=== PATIENT | male | born 1945 | race Caucasian/White ===

== ENCOUNTER → 2016-07-12 | Outpatient (REF) | payer OTHER ==
[2016-07-12 11:39] LABS: INR 2.28
== END ==
LOC: M LABDRAWC 11:04
PROVIDERS: ATTEND Internal Medicine Cardiovascular Disease
DX: Z51.81 Encounter for therapeutic drug level monitoring (principal); Z79.01 Long term (current) use of anticoagulants; I48.91 Unspecified atrial fibrillation

== ENCOUNTER → 2016-07-25 | Outpatient (REF) | payer OTHER ==
[2016-07-25 12:06] LABS: ALBUMIN 3.4 GM/DL (3.2-5.2); ALBUMIN/GLOBULIN RATIO 1.21 (1.00-1.93); ALKALINE PHOSPHATASE 83 U/L (45-117); ALT/SGPT 28 U/L (12-78); ANION GAP 10 MEQ/L (8-16); AST/SGOT 24 U/L (15-37); BILIRUBIN,TOTAL 0.4 MG/DL (0.2-1.0); BLOOD UREA NITROGEN 12 MG/DL (7-18); CARBON DIOXIDE LEVEL 27 MEQ/L (21-32); CHLORIDE LEVEL 106 MEQ/L (98-107); CHOLESTEROL LEVEL 133 MG/DL (<200); CREATININE FOR GFR 1.07 MG/DL (0.70-1.30); FREE T4 0.97 NG/DL (0.76-1.46); GLOMERULAR FILTRATION RATE > 60.0 (>42); GLUCOSE, FASTING 140 MG/DL (83-110); POTASSIUM SERUM 4.8 MEQ/L (3.5-5.1); SODIUM LEVEL 143 MEQ/L (136-145); TOTAL PROTEIN 6.2 GM/DL (6.4-8.2); TRIGLYCERIDES LEVEL 147 MG/DL (<150)
== END ==
LOC: M SFHCCLAY 11:01
PROVIDERS: ATTEND Family Medicine
DX: E11.9 Type 2 diabetes mellitus without complications (principal); E07.9 Disorder of thyroid, unspecified; E78.2 Mixed hyperlipidemia

== ENCOUNTER → 2016-08-15 | Outpatient (REF) | payer OTHER ==
[2016-08-15 11:23] LABS: INR 2.27
== END ==
LOC: M LABDRAWC 10:59
PROVIDERS: ATTEND Internal Medicine Cardiovascular Disease
DX: I48.91 Unspecified atrial fibrillation (principal); Z79.01 Long term (current) use of anticoagulants

== ENCOUNTER → 2016-09-18 | Outpatient (REF) | payer OTHER ==
[2016-09-18 11:59] LABS: INR 3.15
== END ==
LOC: M LABDRAWC 11:35
PROVIDERS: ATTEND Internal Medicine Cardiovascular Disease
DX: I48.91 Unspecified atrial fibrillation (principal); Z79.01 Long term (current) use of anticoagulants

== ENCOUNTER → 2016-10-16 | Outpatient (REF) | payer OTHER ==
[2016-10-16 12:05] LABS: INR 2.37
== END ==
LOC: M LABDRAWC 11:28
PROVIDERS: ATTEND Internal Medicine Cardiovascular Disease
DX: Z51.81 Encounter for therapeutic drug level monitoring (principal); Z79.01 Long term (current) use of anticoagulants; I48.2 Chronic atrial fibrillation

== ENCOUNTER → 2016-11-15 | Outpatient (REF) | payer OTHER ==
[2016-11-15 12:34] LABS: INR 2.79
== END ==
LOC: M LABDRAW1 11:44
PROVIDERS: ATTEND Internal Medicine Cardiovascular Disease
DX: Z51.81 Encounter for therapeutic drug level monitoring (principal); Z79.01 Long term (current) use of anticoagulants; I48.2 Chronic atrial fibrillation

== ENCOUNTER → 2016-12-25 | Outpatient (REF) | payer OTHER ==
[2016-12-25 11:55] LABS: INR 3.42
== END ==
LOC: M LAB REF 11:13
PROVIDERS: ATTEND Internal Medicine Cardiovascular Disease
DX: Z51.81 Encounter for therapeutic drug level monitoring (principal); Z79.01 Long term (current) use of anticoagulants; I48.2 Chronic atrial fibrillation

== ENCOUNTER → 2017-01-04 | Outpatient (REF) | payer OTHER ==
[2017-01-04 12:14] LABS: INR 2.81
== END ==
LOC: M LABDRAWC 11:47
PROVIDERS: ATTEND Internal Medicine Cardiovascular Disease
DX: Z51.81 Encounter for therapeutic drug level monitoring (principal); Z79.01 Long term (current) use of anticoagulants; I48.2 Chronic atrial fibrillation

== ENCOUNTER → 2017-01-16 | Outpatient (REF) | payer OTHER ==
[2017-01-16 13:45] LABS: ALBUMIN 3.5 GM/DL (3.2-5.2); ALBUMIN/GLOBULIN RATIO 1.17 (1.00-1.93); BILIRUBIN,TOTAL 0.4 MG/DL (0.2-1.0); CALCIUM LEVEL 7.8 MG/DL (8.8-10.2); CREATININE FOR GFR 1.33 MG/DL (0.70-1.30); FREE T4 1.1 NG/DL (0.76-1.46); GLOMERULAR FILTRATION RATE 56.1 (>42); POTASSIUM SERUM 4.9 MEQ/L (3.5-5.1); TOTAL PROTEIN 6.5 GM/DL (6.4-8.2)
== END ==
LOC: M SFHCCLAY 09:28
PROVIDERS: ATTEND Family Medicine
DX: E07.9 Disorder of thyroid, unspecified (principal); E11.9 Type 2 diabetes mellitus without complications; E78.2 Mixed hyperlipidemia

== ENCOUNTER → 2017-02-19 | Outpatient (REF) | payer OTHER ==
[2017-02-19 11:47] LABS: INR 3.43
== END ==
LOC: M LABDRAWC 11:19
PROVIDERS: ATTEND Internal Medicine Cardiovascular Disease
DX: Z51.81 Encounter for therapeutic drug level monitoring (principal); Z79.01 Long term (current) use of anticoagulants; I48.2 Chronic atrial fibrillation

== ENCOUNTER → 2017-03-06 | Outpatient (REF) | payer OTHER ==
[2017-03-06 12:01] LABS: INR 1.74
== END ==
LOC: M LABDRAWC 11:46
PROVIDERS: ATTEND Internal Medicine Cardiovascular Disease
DX: Z51.81 Encounter for therapeutic drug level monitoring (principal); Z79.01 Long term (current) use of anticoagulants; I48.2 Chronic atrial fibrillation

== ENCOUNTER → 2017-03-20 | Outpatient (REF) | payer OTHER ==
[2017-03-20 11:38] LABS: INR 2.78
== END ==
LOC: M LAB REF 11:18
PROVIDERS: ATTEND Internal Medicine Cardiovascular Disease
DX: I48.2 Chronic atrial fibrillation (principal); Z79.01 Long term (current) use of anticoagulants

== ENCOUNTER → 2017-04-12 | Outpatient (REF) | payer OTHER ==
[2017-04-12 12:01] LABS: INR 2.27
== END ==
LOC: M LABDRAWC 11:25
PROVIDERS: ATTEND Internal Medicine Cardiovascular Disease
DX: I48.2 Chronic atrial fibrillation (principal); Z79.01 Long term (current) use of anticoagulants

== ENCOUNTER → 2017-06-14 | Outpatient (REF) | payer OTHER ==
[2017-06-14 12:13] LABS: INR 2.24
== END ==
LOC: M LABDRAWC 11:31
PROVIDERS: ATTEND Internal Medicine Cardiovascular Disease
DX: I48.2 Chronic atrial fibrillation (principal); Z79.01 Long term (current) use of anticoagulants

== ENCOUNTER → 2017-07-16 | Outpatient (REF) | payer OTHER ==
[2017-07-16 11:50] LABS: INR 2.56; PROTHROMBIN TIME 28.6 SECONDS (12.4-14.5)
== END ==
LOC: M LABDRAWC 11:30
DX: I48.2 Chronic atrial fibrillation (principal); Z79.01 Long term (current) use of anticoagulants
CPT/HCPCS: 85610

== ENCOUNTER → 2017-07-25 | Outpatient (REF) | payer OTHER ==
[2017-07-25 11:58] LABS: ALBUMIN 3.3 GM/DL (3.2-5.2); ALBUMIN/GLOBULIN RATIO 0.97 (1.00-1.93); ALKALINE PHOSPHATASE 92 U/L (45-117); ALT/SGPT 23 U/L (12-78); ANION GAP 7 MEQ/L (8-16); AST/SGOT 16 U/L (7-37); BILIRUBIN,TOTAL 0.3 MG/DL (0.2-1.0); BLOOD UREA NITROGEN 17 MG/DL (7-18); CALCIUM LEVEL 8.4 MG/DL (8.8-10.2); CARBON DIOXIDE LEVEL 29 MEQ/L (21-32); CHLORIDE LEVEL 106 MEQ/L (98-107); CHOLESTEROL LEVEL 122 MG/DL (<200); CHOLESTEROL RISK RATIO 2.975 (<5); CREATININE FOR GFR 1.15 MG/DL (0.70-1.30); FREE T4 0.95 NG/DL (0.76-1.46); GLOMERULAR FILTRATION RATE > 60.0 (>42); GLUCOSE, FASTING 112 MG/DL (83-110); HDL CHOLESTEROL 41 MG/DL (>40); LDL CHOLESTEROL 35.8 MG/DL (<100); NON-HDL-C 81 MG/DL; POTASSIUM SERUM 4.9 MEQ/L (3.5-5.1); SODIUM LEVEL 142 MEQ/L (136-145); TOTAL PROTEIN 6.7 GM/DL (6.4-8.2); TRIGLYCERIDES LEVEL 226 MG/DL (<150)
[2017-07-25 12:33] LABS: MAU/CREAT RATIO 58.4 MCG/MG (0.0-30.0)
[2017-07-25 12:35] LABS: ESTIMATED AVERAGE GLUCOSE 166 MG/DL (60-110); HEMOGLOBIN A1c 7.4 %
== END ==
LOC: M SFHCCLAY 08:25
DX: E11.9 Type 2 diabetes mellitus without complications (principal); E07.9 Disorder of thyroid, unspecified; E78.2 Mixed hyperlipidemia
CPT/HCPCS: 84443

== ENCOUNTER → 2017-08-20 | Outpatient (REF) | payer OTHER ==
[2017-08-20 13:57] LABS: INR 2.88; PROTHROMBIN TIME 31.4 SECONDS (12.4-14.5)
== END ==
LOC: M LABDRAWC 08:31
DX: I48.2 Chronic atrial fibrillation (principal); Z79.01 Long term (current) use of anticoagulants
CPT/HCPCS: 85610

== ENCOUNTER → 2017-09-18 | Outpatient (REF) | payer OTHER ==
[2017-09-18 12:10] LABS: INR 2.68; PROTHROMBIN TIME 29.6 SECONDS (12.4-14.5)
== END ==
LOC: M LABDRAWC 11:23
DX: Z79.01 Long term (current) use of anticoagulants (principal); I48.2 Chronic atrial fibrillation
CPT/HCPCS: 85610

== ENCOUNTER → 2017-10-19 | Outpatient (REF) | payer OTHER ==
[2017-10-19 11:51] LABS: INR 3.59; PROTHROMBIN TIME 37.6 SECONDS (12.4-14.5)
== END ==
LOC: M LABDRAWC 11:33
DX: Z79.01 Long term (current) use of anticoagulants (principal); I48.2 Chronic atrial fibrillation
CPT/HCPCS: 85610

== ENCOUNTER → 2017-11-05 | Outpatient (REF) | payer OTHER ==
[2017-11-05 12:08] LABS: INR 2.26; PROTHROMBIN TIME 25.8 SECONDS (12.4-14.5)
== END ==
LOC: M LABDRAWC 11:28
DX: Z79.01 Long term (current) use of anticoagulants (principal); I48.2 Chronic atrial fibrillation
CPT/HCPCS: 85610

== ENCOUNTER → 2017-12-07 | Outpatient (REF) | payer OTHER ==
[2017-12-07 12:17] LABS: INR 2.66; PROTHROMBIN TIME 29.5 SECONDS (12.4-14.5)
== END ==
LOC: M LABDRAWC 11:53
DX: I48.2 Chronic atrial fibrillation (principal); Z79.01 Long term (current) use of anticoagulants
CPT/HCPCS: 85610

== ENCOUNTER → 2018-01-10 | Outpatient (REF) | payer OTHER ==
[2018-01-10 16:51] LABS: ESTIMATED AVERAGE GLUCOSE 151 MG/DL (60-110); HEMOGLOBIN A1c 6.9 %; MALB URINE SIEMENS 40.7 MG/L; MAU/CREAT RATIO 16.1 MCG/MG (0.0-30.0)
[2018-01-10 16:57] LABS: ALBUMIN 3.6 GM/DL (3.2-5.2); ALBUMIN/GLOBULIN RATIO 1.16 (1.00-1.93); ALKALINE PHOSPHATASE 80 U/L (45-117); ALT/SGPT 28 U/L (12-78); ANION GAP 5 MEQ/L (8-16); AST/SGOT 29 U/L (7-37); BILIRUBIN,TOTAL 0.4 MG/DL (0.2-1.0); BLOOD UREA NITROGEN 27 MG/DL (7-18); CALCIUM LEVEL 8.4 MG/DL (8.8-10.2); CARBON DIOXIDE LEVEL 28 MEQ/L (21-32); CHLORIDE LEVEL 107 MEQ/L (98-107); CHOLESTEROL LEVEL 124 MG/DL (<200); CHOLESTEROL RISK RATIO 2.755 (<5); CREATININE FOR GFR 1.63 MG/DL (0.70-1.30); FREE T4 0.98 NG/DL (0.76-1.46); GLOMERULAR FILTRATION RATE 44.2 (>42); GLUCOSE, FASTING 137 MG/DL (70-100); HDL CHOLESTEROL 45 MG/DL (>40); NON-HDL-C 79 MG/DL; PSA SCREENING 4.37 NG/ML (< 4.0); SODIUM LEVEL 140 MEQ/L (136-145); TOTAL PROTEIN 6.7 GM/DL (6.4-8.2); TRIGLYCERIDES LEVEL 115 MG/DL (<150)
[2018-01-10 16:58] LABS: POTASSIUM SERUM 5.6 MEQ/L (3.5-5.1)
== END ==
LOC: M SFHCCLAY 13:18
DX: E11.9 Type 2 diabetes mellitus without complications (principal); E07.9 Disorder of thyroid, unspecified; E78.2 Mixed hyperlipidemia; Z12.5 Encounter for screening for malignant neoplasm of prostate
CPT/HCPCS: 84443

== ENCOUNTER → 2018-01-14 | Outpatient (REF) | payer OTHER ==
[2018-01-14 12:00] LABS: PROTHROMBIN TIME 32.7 SECONDS (12.1-14.4)
== END ==
LOC: M LABDRAWC 11:31
DX: Z51.81 Encounter for therapeutic drug level monitoring (principal); Z79.01 Long term (current) use of anticoagulants; I48.2 Chronic atrial fibrillation
CPT/HCPCS: 85610

== ENCOUNTER → 2018-01-28 | Outpatient (REF) | payer OTHER ==
[2018-01-28 11:58] LABS: INR 2.96; PROTHROMBIN TIME 31.5 SECONDS (12.1-14.4)
== END ==
LOC: M LABDRAWC 11:34
DX: Z79.01 Long term (current) use of anticoagulants (principal); I48.2 Chronic atrial fibrillation
CPT/HCPCS: 85610

== ENCOUNTER → 2018-03-04 | Outpatient (REF) | payer OTHER ==
[2018-03-05 12:01] LABS: INR 1.89
== END ==
LOC: M LABDRAWC 11:28
DX: Z79.01 Long term (current) use of anticoagulants (principal); I48.2 Chronic atrial fibrillation
CPT/HCPCS: 85610

== ENCOUNTER → 2018-03-26 | Outpatient (REF) | payer OTHER ==
[2018-03-26 12:17] LABS: INR 2.74; PROTHROMBIN TIME 29.6 SECONDS (12.1-14.4)
== END ==
LOC: M LABDRAWC 11:16
DX: Z79.01 Long term (current) use of anticoagulants (principal); I48.2 Chronic atrial fibrillation
CPT/HCPCS: 85610

== ENCOUNTER → 2018-04-17 | Outpatient (REF) | payer OTHER ==
[2018-04-17 12:07] LABS: INR 2.45; PROTHROMBIN TIME 27.1 SECONDS (12.1-14.4)
== END ==
LOC: M LAB REF 11:33
DX: Z79.01 Long term (current) use of anticoagulants (principal)
CPT/HCPCS: 85610

== ENCOUNTER → 2018-05-16 | Outpatient (REF) | payer OTHER ==
[2018-05-16 13:36] LABS: INR 2.83; PROTHROMBIN TIME 30.4 SECONDS (12.1-14.4)
== END ==
LOC: M LABDRAWC 11:59
DX: Z51.81 Encounter for therapeutic drug level monitoring (principal); Z79.01 Long term (current) use of anticoagulants
CPT/HCPCS: 85610

== ENCOUNTER → 2018-06-20 | Outpatient (REF) | payer OTHER ==
[2018-06-20 12:40] LABS: INR 1.87; PROTHROMBIN TIME 21.9 SECONDS (12.1-14.4)
== END ==
LOC: M LABDRAWC 11:24
DX: Z51.81 Encounter for therapeutic drug level monitoring (principal); Z79.01 Long term (current) use of anticoagulants
CPT/HCPCS: 85610

== ENCOUNTER → 2018-07-04 | Outpatient (REF) | payer OTHER ==
[2018-07-04 12:02] LABS: INR 2.69; PROTHROMBIN TIME 29.2 SECONDS (12.1-14.4)
== END ==
LOC: M LABDRAWC 11:29
PROVIDERS: ATTEND Internal Medicine Cardiovascular Disease
DX: Z79.01 Long term (current) use of anticoagulants (principal)

== ENCOUNTER → 2018-07-17 | Outpatient (REF) | payer OTHER ==
[2018-07-17 12:21] LABS: HEMOGLOBIN A1c 7.4 %
[2018-07-17 12:44] LABS: BLOOD UREA NITROGEN 21 MG/DL (7-18); CALCIUM LEVEL 8.4 MG/DL (8.8-10.2); CARBON DIOXIDE LEVEL 29 MEQ/L (21-32); CHLORIDE LEVEL 104 MEQ/L (98-107); GLOMERULAR FILTRATION RATE > 60.0 (>42); GLUCOSE, FASTING 159 MG/DL (70-100); POTASSIUM SERUM 4.3 MEQ/L (3.5-5.1); SODIUM LEVEL 141 MEQ/L (136-145); TOTAL T3 85.9 NG/DL (60.0-181.0)
== END ==
LOC: M SFHCCLAY 09:26
PROVIDERS: ATTEND Family Medicine
DX: E11.22 Type 2 diabetes mellitus with diabetic chronic kidney disease (principal); E07.9 Disorder of thyroid, unspecified

== ENCOUNTER → 2018-07-31 | Outpatient (REF) | payer OTHER, MEDICARE ==
[2018-07-31 13:07] LABS: INR 2.62; PROTHROMBIN TIME 28.6 SECONDS (12.1-14.4)
== END ==
LOC: M LABDRAWC 12:23
PROVIDERS: ATTEND Internal Medicine Cardiovascular Disease
DX: Z79.01 Long term (current) use of anticoagulants (principal)

== ENCOUNTER → 2018-09-03 | Outpatient (REF) | payer OTHER, MEDICARE ==
[2018-09-03 17:12] LABS: INR 2.87; PROTHROMBIN TIME 30.7 SECONDS (12.1-14.4)
== END ==
LOC: M LABDRAWC 16:21
PROVIDERS: ATTEND Internal Medicine Cardiovascular Disease
DX: Z79.01 Long term (current) use of anticoagulants (principal)

== ENCOUNTER → 2018-10-03 | Outpatient (REF) | payer OTHER, MEDICARE ==
[2018-10-03 11:59] LABS: INR 2.54; PROTHROMBIN TIME 27.9 SECONDS (12.1-14.4)
== END ==
LOC: M LABDRAW1 11:14 → M LAB REF 11:14
PROVIDERS: ATTEND Internal Medicine Cardiovascular Disease
DX: Z79.01 Long term (current) use of anticoagulants (principal)

== ENCOUNTER → 2018-11-01 | Outpatient (REF) | payer OTHER, MEDICARE ==
[2018-11-01 12:44] LABS: INR 2.29; PROTHROMBIN TIME 25.7 SECONDS (12.1-14.4)
== END ==
LOC: M LABDRAWC 11:37
PROVIDERS: ATTEND Internal Medicine Cardiovascular Disease
DX: Z79.01 Long term (current) use of anticoagulants (principal)

== ENCOUNTER → 2018-12-04 | Outpatient (REF) | payer OTHER, MEDICARE ==
[2018-12-04 11:41] LABS: INR 2.51; PROTHROMBIN TIME 27.6 SECONDS (12.1-14.4)
== END ==
LOC: M LAB REF 11:17
PROVIDERS: ATTEND Internal Medicine Cardiovascular Disease
DX: Z79.01 Long term (current) use of anticoagulants (principal); I48.2 Chronic atrial fibrillation

== ENCOUNTER → 2019-01-07 | Outpatient (REF) | payer MEDICARE ==
[2019-01-07 11:52] LABS: BASO % 0.5 % (0.0-1.0); EOS # 0.2 10^3/uL (0.0-0.50); EOS % 3.5 % (0.0-3.0); HEMATOCRIT 36.7 % (42.0-52.0); HEMOGLOBIN 11.7 g/dl (13.5-17.5); LYMPH # 2.2 10^3/uL (1.5-4.5); LYMPH % 34.1 % (24.0-44.0); MEAN CORPUSCULAR HGB CONC 31.9 g/dl (32.0-36.5); MEAN CORPUSCULAR VOLUME 94.1 fl (80.0-96.0); MONO # 0.6 10^3/uL (0.0-0.8); MONO % 9.2 % (0.0-5.0); NEUTROPHILS # 3.4 10^3/uL (1.8-7.7); NEUTROPHILS % 52.5 % (36.0-66.0); PLATELET COUNT, AUTOMATED 173 10^3/uL (150-450); WHITE BLOOD COUNT 6.5 10^3/uL (4.0-10.0)
[2019-01-07 12:15] LABS: ALBUMIN 3.4 GM/DL (3.2-5.2); ALT/SGPT 29 U/L (12-78); BILIRUBIN,TOTAL 0.3 MG/DL (0.2-1.0); BLOOD UREA NITROGEN 21 MG/DL (7-18); CALCIUM LEVEL 7.8 MG/DL (8.8-10.2); CARBON DIOXIDE LEVEL 26 MEQ/L (21-32); CHLORIDE LEVEL 106 MEQ/L (98-107); CHOLESTEROL LEVEL 117 MG/DL (<200); CREATININE FOR GFR 1.23 MG/DL (0.70-1.30); GLOMERULAR FILTRATION RATE > 60.0 (>42); GLUCOSE, FASTING 162 MG/DL (70-100); HDL CHOLESTEROL 52 MG/DL (>40); LDL CHOLESTEROL 48 MG/DL (<100); NON-HDL-C 65 MG/DL; POTASSIUM SERUM 4.5 MEQ/L (3.5-5.1); SODIUM LEVEL 140 MEQ/L (136-145); THYROXINE (T4) 8.3 UG/DL (4.5-12.0); TOTAL PROTEIN 6.5 GM/DL (6.4-8.2); TOTAL T3 84.8 NG/DL (60.0-181.0); TRIGLYCERIDES LEVEL 85 MG/DL (<150)
[2019-01-07 12:41] LABS: MALB URINE SIEMENS 18.5 MG/L; MAU/CREAT RATIO 8.3 MCG/MG (0.0-30.0)
[2019-01-07 13:32] LABS: HEMOGLOBIN A1c 7.5 %
== END ==
LOC: M SFHCCLAY 08:05
PROVIDERS: ATTEND Family Medicine
DX: I10 Essential (primary) hypertension (principal); E78.2 Mixed hyperlipidemia; E11.22 Type 2 diabetes mellitus with diabetic chronic kidney disease; R97.20 Elevated prostate specific antigen [PSA]; E07.9 Disorder of thyroid, unspecified; I48.2 Chronic atrial fibrillation; Z79.01 Long term (current) use of anticoagulants
CPT/HCPCS: 36415; 80053; 80061; 82043; 83036; 84436; 84443; 84480; 85025; 85610; G0103

== ENCOUNTER → 2019-01-07 | Outpatient (REF) | payer MEDICARE ==
[2019-01-07 12:09] LABS: INR 2.51; PROTHROMBIN TIME 26.9 SECONDS (11.8-14.0)
== END ==
LOC: M LABDRAWC 11:15
PROVIDERS: ATTEND Internal Medicine Cardiovascular Disease
DX: I48.2 Chronic atrial fibrillation (principal); Z79.01 Long term (current) use of anticoagulants

== ENCOUNTER → 2019-02-21 | Outpatient (REF) | payer MEDICARE ==
[2019-02-21 11:47] LABS: INR 2.17
== END ==
LOC: M LABDRAWC 11:10
PROVIDERS: ATTEND Internal Medicine Cardiovascular Disease
DX: Z79.01 Long term (current) use of anticoagulants (principal); I48.2 Chronic atrial fibrillation

== ENCOUNTER → 2019-03-21 | Outpatient (REF) | payer MEDICARE ==
[2019-03-21 12:28] LABS: INR 2.15; PROTHROMBIN TIME 23.8 SECONDS (11.8-14.0)
== END ==
LOC: M LABDRAWC 11:21
PROVIDERS: ATTEND Internal Medicine Cardiovascular Disease
DX: Z79.01 Long term (current) use of anticoagulants (principal); I48.2 Chronic atrial fibrillation

== ENCOUNTER → 2019-04-18 | Outpatient (REF) | payer MEDICARE ==
[2019-04-18 12:09] LABS: INR 1.99; PROTHROMBIN TIME 22.4 SECONDS (11.8-14.0)
== END ==
LOC: M LABDRAWC 11:23
PROVIDERS: ATTEND Internal Medicine Cardiovascular Disease
DX: Z79.01 Long term (current) use of anticoagulants (principal); I48.20 Chronic atrial fibrillation, unspecified

== ENCOUNTER → 2019-04-28 | Outpatient (REF) | payer MEDICARE ==
[2019-04-28 11:43] LABS: INR 2.17
== END ==
LOC: M LABDRAWC 08:31
PROVIDERS: ATTEND Internal Medicine Cardiovascular Disease
DX: Z79.01 Long term (current) use of anticoagulants (principal)

== ENCOUNTER → 2019-05-27 | Outpatient (REF) | payer MEDICARE ==
[2019-05-27 12:11] LABS: INR 2.21; PROTHROMBIN TIME 24.3 SECONDS (11.8-14.0)
== END ==
LOC: M LABDRAWC 11:20 → M LAB REF 11:20
PROVIDERS: ATTEND Internal Medicine Cardiovascular Disease
DX: Z79.01 Long term (current) use of anticoagulants (principal); I48.20 Chronic atrial fibrillation, unspecified

== ENCOUNTER → 2019-06-26 | Outpatient (REF) | payer MEDICARE ==
[2019-06-26 11:47] LABS: INR 2.99
== END ==
LOC: M LABDRAWC 11:11
PROVIDERS: ATTEND Internal Medicine Cardiovascular Disease
DX: Z79.01 Long term (current) use of anticoagulants (principal); I48.20 Chronic atrial fibrillation, unspecified

== ENCOUNTER → 2019-07-22 | Outpatient (REF) | payer MEDICARE ==
[2019-07-22 12:32] LABS: INR 2.91; PROTHROMBIN TIME 30.3 SECONDS (11.8-14.0)
== END ==
LOC: M LABDRAWC 11:53
PROVIDERS: ATTEND Internal Medicine Cardiovascular Disease
DX: I48.20 Chronic atrial fibrillation, unspecified (principal); Z79.01 Long term (current) use of anticoagulants

== ENCOUNTER → 2019-07-22 | Outpatient (REF) | payer MEDICARE ==
[2019-07-22 17:07] LABS: ALBUMIN 3.8 GM/DL (3.2-5.2); BILIRUBIN,TOTAL 0.4 MG/DL (0.2-1.0); CREATININE FOR GFR 1.29 MG/DL (0.70-1.30); GLOMERULAR FILTRATION RATE 57.8 (>42); POTASSIUM SERUM 4.3 MEQ/L (3.5-5.1); PROSTATIC SPECIFIC AG MONITOR 5.34 NG/ML (< 4.00); THYROID STIMULATING HORMONE 4.66 uIU/ML (0.358-3.740); THYROXINE (T4) 8.9 UG/DL (4.5-12.0); TOTAL PROTEIN 6.9 GM/DL (6.4-8.2)
[2019-07-22 17:11] LABS: HEMOGLOBIN A1c 8.1 %
== END ==
LOC: M SFHCCLAY 10:23
PROVIDERS: ATTEND Family Medicine
DX: E11.22 Type 2 diabetes mellitus with diabetic chronic kidney disease (principal); E07.9 Disorder of thyroid, unspecified; R97.20 Elevated prostate specific antigen [PSA]; I48.20 Chronic atrial fibrillation, unspecified; Z79.01 Long term (current) use of anticoagulants

== ENCOUNTER → 2019-08-21 | Outpatient (REF) | payer MEDICARE ==
[2019-08-21 12:12] LABS: INR 3.91; PROTHROMBIN TIME 38.4 SECONDS (11.8-14.0)
== END ==
LOC: M LABDRAWC 11:14
PROVIDERS: ATTEND Internal Medicine Cardiovascular Disease
DX: Z79.01 Long term (current) use of anticoagulants (principal); I48.20 Chronic atrial fibrillation, unspecified

== ENCOUNTER → 2019-09-02 | Outpatient (REF) | payer MEDICARE ==
[2019-09-02 13:01] LABS: INR 2.49; PROTHROMBIN TIME 26.8 SECONDS (11.8-14.0)
== END ==
LOC: M LABDRAWC 11:24
PROVIDERS: ATTEND Internal Medicine Cardiovascular Disease
DX: I48.20 Chronic atrial fibrillation, unspecified (principal); Z79.01 Long term (current) use of anticoagulants

== ENCOUNTER → 2019-09-17 | Outpatient (REF) | payer MEDICARE ==
[2019-09-17 11:58] LABS: INR 2.35; PROTHROMBIN TIME 25.6 SECONDS (11.8-14.0)
== END ==
LOC: M LABDRAWC 11:17
PROVIDERS: ATTEND Internal Medicine Cardiovascular Disease
DX: Z79.01 Long term (current) use of anticoagulants (principal); I48.20 Chronic atrial fibrillation, unspecified

== ENCOUNTER → 2019-10-08 | Outpatient (REF) | payer MEDICARE ==
[2019-10-08 11:59] LABS: INR 2.86; PROTHROMBIN TIME 29.9 SECONDS (11.8-14.0)
== END ==
LOC: M LABDRAWC 11:13
PROVIDERS: ATTEND Internal Medicine Cardiovascular Disease
DX: I48.20 Chronic atrial fibrillation, unspecified (principal); Z79.01 Long term (current) use of anticoagulants

== ENCOUNTER → 2019-11-05 | Outpatient (REF) | payer MEDICARE ==
[2019-11-05 12:06] LABS: INR 3.43; PROTHROMBIN TIME 34.6 SECONDS (11.8-14.0)
== END ==
LOC: M LABDRAWC 11:18
PROVIDERS: ATTEND Internal Medicine Cardiovascular Disease
DX: Z79.01 Long term (current) use of anticoagulants (principal); I48.20 Chronic atrial fibrillation, unspecified

== ENCOUNTER → 2019-11-11 | Outpatient (REF) | payer MEDICARE | LOC: M LAB REF 10:22 | PROVIDERS: ATTEND Dermatology | DX: C44.320 Squamous cell carcinoma of skin of unspecified parts of face (principal) ==

== ENCOUNTER → 2019-11-19 | Outpatient (REF) | payer MEDICARE ==
[2019-11-19 11:58] LABS: INR 2.49; PROTHROMBIN TIME 26.8 SECONDS (11.8-14.0)
== END ==
LOC: M LABDRAWC 11:19
PROVIDERS: ATTEND Internal Medicine Cardiovascular Disease
DX: I48.20 Chronic atrial fibrillation, unspecified (principal); Z79.01 Long term (current) use of anticoagulants

== ENCOUNTER → 2019-12-10 | Outpatient (REF) | payer MEDICARE | LOC: M LAB REF 10:33 | PROVIDERS: ATTEND Dermatology | DX: C44.320 Squamous cell carcinoma of skin of unspecified parts of face (principal); L90.5 Scar conditions and fibrosis of skin ==

== ENCOUNTER → 2019-12-11 | Outpatient (REF) | payer MEDICARE ==
[2019-12-11 12:58] LABS: INR 3.2; PROTHROMBIN TIME 32.7 SECONDS (11.8-14.0)
== END ==
LOC: M LABDRAWC 11:21
PROVIDERS: ATTEND Internal Medicine Cardiovascular Disease
DX: Z79.01 Long term (current) use of anticoagulants (principal); I48.20 Chronic atrial fibrillation, unspecified

== ENCOUNTER → 2019-12-25 | Outpatient (REF) | payer MEDICARE ==
[2019-12-25 12:11] LABS: INR 2.78; PROTHROMBIN TIME 29.2 SECONDS (11.8-14.0)
== END ==
LOC: M LABDRAWC 11:14
PROVIDERS: ATTEND Internal Medicine Cardiovascular Disease
DX: Z79.01 Long term (current) use of anticoagulants (principal); I48.20 Chronic atrial fibrillation, unspecified

== ENCOUNTER → 2020-01-21 | Outpatient (REF) | payer MEDICARE ==
[2020-01-21 12:01] LABS: INR 2.79; PROTHROMBIN TIME 29.3 SECONDS (11.8-14.0)
== END ==
LOC: M LABDRAWC 11:43
PROVIDERS: ATTEND Internal Medicine Cardiovascular Disease
DX: I48.20 Chronic atrial fibrillation, unspecified (principal); Z79.01 Long term (current) use of anticoagulants

== ENCOUNTER → 2020-01-21 | Outpatient (REF) | payer MEDICARE ==
[2020-01-21 13:39] LABS: ALBUMIN 3.3 GM/DL (3.2-5.2); BILIRUBIN,TOTAL 0.3 MG/DL (0.2-1.0); CALCIUM LEVEL 8.4 MG/DL (8.8-10.2); CHOLESTEROL RISK RATIO 3.275 (<5); CREATININE FOR GFR 1.3 MG/DL (0.70-1.30); GLOMERULAR FILTRATION RATE 57.1 (>42); POTASSIUM SERUM 4.5 MEQ/L (3.5-5.1); PROSTATIC SPECIFIC AG MONITOR 4.8 NG/ML (< 4.00); THYROID STIMULATING HORMONE 3.79 uIU/ML (0.358-3.740); TOTAL PROTEIN 6.5 GM/DL (6.4-8.2)
[2020-01-21 15:22] LABS: HEMOGLOBIN A1c 6.3 %
== END ==
LOC: M SFHCCLAY 07:48
PROVIDERS: ATTEND Family Medicine
DX: E11.22 Type 2 diabetes mellitus with diabetic chronic kidney disease (principal); E07.9 Disorder of thyroid, unspecified; R97.20 Elevated prostate specific antigen [PSA]; I48.20 Chronic atrial fibrillation, unspecified; Z79.01 Long term (current) use of anticoagulants

== ENCOUNTER → 2020-03-02 | Outpatient (REF) | payer MEDICARE ==
[2020-03-02 13:07] LABS: INR 1.28; PROTHROMBIN TIME 16.3 SECONDS (11.8-14.0)
== END ==
LOC: M LABDRAWC 11:08
PROVIDERS: ATTEND Internal Medicine Cardiovascular Disease
DX: Z79.01 Long term (current) use of anticoagulants (principal); I48.20 Chronic atrial fibrillation, unspecified

== ENCOUNTER → 2020-03-18 | Outpatient (REF) | payer MEDICARE ==
[2020-03-18 13:39] LABS: INR 1.89; PROTHROMBIN TIME 22.1 SECONDS (11.8-14.0)
== END ==
LOC: M LABDRAWC 11:54
PROVIDERS: ATTEND Internal Medicine Cardiovascular Disease
DX: I48.20 Chronic atrial fibrillation, unspecified (principal); Z79.01 Long term (current) use of anticoagulants

== ENCOUNTER → 2020-04-06 | Outpatient (REF) | payer MEDICARE ==
[2020-04-06 12:37] LABS: PROTHROMBIN TIME 23.1 SECONDS (12.5-14.3)
== END ==
LOC: M LABDRAWC 11:08
PROVIDERS: ATTEND Internal Medicine Cardiovascular Disease
DX: Z51.81 Encounter for therapeutic drug level monitoring (principal); Z79.01 Long term (current) use of anticoagulants; I48.20 Chronic atrial fibrillation, unspecified

== ENCOUNTER → 2020-04-27 | Outpatient (REF) | payer MEDICARE ==
[2020-04-27 12:47] LABS: INR 2.67
== END ==
LOC: M LABDRAWC 11:19
PROVIDERS: ATTEND Internal Medicine Cardiovascular Disease
DX: Z79.01 Long term (current) use of anticoagulants (principal); I48.20 Chronic atrial fibrillation, unspecified

== ENCOUNTER → 2020-08-09 | Outpatient (REF) | payer MEDICARE ==
[2020-08-09 12:14] LABS: ALBUMIN 3.7 GM/DL (3.2-5.2); BILIRUBIN,TOTAL 0.4 MG/DL (0.2-1.0); CREATININE FOR GFR 1.55 MG/DL (0.70-1.30); GLOMERULAR FILTRATION RATE 46.6 (>42); POTASSIUM SERUM 4.2 MEQ/L (3.5-5.1); PROSTATIC SPECIFIC AG MONITOR 4.23 NG/ML (< 4.00); THYROID STIMULATING HORMONE 4.09 uIU/ML (0.358-3.740); TOTAL PROTEIN 6.7 GM/DL (6.4-8.2)
[2020-08-09 15:58] LABS: HEMOGLOBIN A1c 6.4 %
== END ==
LOC: M SFHCCLAY 08:27
PROVIDERS: ATTEND Family Medicine
DX: E11.22 Type 2 diabetes mellitus with diabetic chronic kidney disease (principal); E07.9 Disorder of thyroid, unspecified; R97.20 Elevated prostate specific antigen [PSA]

== ENCOUNTER → 2021-02-11 | Outpatient (REF) | payer MEDICARE ==
[2021-02-11 16:16] LABS: HEMOGLOBIN A1c 6.4 %
[2021-02-11 16:44] LABS: ALBUMIN 3.4 GM/DL (3.2-5.2); BILIRUBIN,TOTAL 0.4 MG/DL (0.2-1.0); CHOLESTEROL RISK RATIO 2.93 (<5); CREATININE FOR GFR 1.3 MG/DL (0.70-1.30); POTASSIUM SERUM 4.5 MEQ/L (3.5-5.1); PROSTATIC SPECIFIC AG MONITOR 4.61 NG/ML (< 4.00); THYROID STIMULATING HORMONE 3.88 uIU/ML (0.358-3.740); TOTAL PROTEIN 6.2 GM/DL (6.4-8.2)
== END ==
LOC: M SFHCCLAY 07:34
PROVIDERS: ATTEND Family Medicine
DX: E11.22 Type 2 diabetes mellitus with diabetic chronic kidney disease (principal); E07.9 Disorder of thyroid, unspecified; R97.20 Elevated prostate specific antigen [PSA]
CPT/HCPCS: 80053; 80061; 83036; 84153; 84443; G0463

== ENCOUNTER → 2021-08-15 | Outpatient (REF) | payer MEDICARE ==
[2021-08-15 13:16] LABS: ALBUMIN 3.4 GM/DL (3.2-5.2); BILIRUBIN,TOTAL 0.3 MG/DL (0.2-1.0); CALCIUM LEVEL 8.5 MG/DL (8.8-10.2); CREATININE FOR GFR 1.28 MG/DL (0.70-1.30); POTASSIUM SERUM 4.4 MEQ/L (3.5-5.1); THYROID STIMULATING HORMONE 4.27 uIU/ML (0.358-3.740); TOTAL PROTEIN 6.3 GM/DL (6.4-8.2)
[2021-08-15 13:17] LABS: HEMOGLOBIN A1c 6.7 %
== END ==
LOC: M SFHCCLAY 08:12
PROVIDERS: ATTEND Family Medicine
DX: E11.22 Type 2 diabetes mellitus with diabetic chronic kidney disease (principal); E07.9 Disorder of thyroid, unspecified; N18.9 Chronic kidney disease, unspecified

== ENCOUNTER → 2022-02-08 | Outpatient (REF) | payer MEDICARE ==
[2022-02-08 11:28] LABS: BASO % 0.5 % (0.0-1.0); EOS # 0.3 10^3/uL (0.0-0.5); EOS % 4.5 % (0.0-3.0); HEMATOCRIT 36.3 % (42.0-52.0); HEMOGLOBIN 11.6 g/dl (13.5-17.5); LYMPH # 1.6 10^3/uL (1.5-5.0); LYMPH % 28.5 % (24.0-44.0); MEAN CORPUSCULAR HEMOGLOBIN 29.9 pg (27.0-33.0); MEAN CORPUSCULAR VOLUME 93.6 fl (80.0-96.0); MONO # 0.5 10^3/uL (0.0-0.8); MONO % 9.3 % (2.0-8.0); NEUTROPHILS # 3.2 10^3/uL (1.5-8.5); NEUTROPHILS % 56.8 % (36.0-66.0); PLATELET COUNT, AUTOMATED 170 10^3/uL (150-450); RED BLOOD COUNT 3.88 10^6/uL (4.30-6.10); WHITE BLOOD COUNT 5.6 10^3/uL (4.0-10.0)
[2022-02-08 13:19] LABS: ALBUMIN 3.4 GM/DL (3.2-5.2); BILIRUBIN,TOTAL 0.4 MG/DL (0.2-1.0); CALCIUM LEVEL 8.6 MG/DL (8.8-10.2); CHOLESTEROL RISK RATIO 2.604 (<5); CREATININE FOR GFR 1.69 MG/DL (0.70-1.30); FREE T4 1.09 NG/DL (0.76-1.46); POTASSIUM SERUM 4.5 MEQ/L (3.5-5.1); PROSTATIC SPECIFIC AG MONITOR 5.97 NG/ML (< 4.00); THYROID STIMULATING HORMONE 5.86 uIU/ML (0.358-3.740); TOTAL PROTEIN 6.5 GM/DL (6.4-8.2)
== END ==
LOC: M SFHCCLAY 08:47
PROVIDERS: ATTEND Family Medicine
DX: R97.20 Elevated prostate specific antigen [PSA] (principal); D64.9 Anemia, unspecified; E07.9 Disorder of thyroid, unspecified; E78.2 Mixed hyperlipidemia; E11.22 Type 2 diabetes mellitus with diabetic chronic kidney disease

== ENCOUNTER → 2022-08-18 | Outpatient (REF) | payer MEDICARE ==
[2022-08-18 17:12] LABS: PROSTATIC SPECIFIC AG MONITOR 4.38 NG/ML (< 4.00)
[2022-08-18 17:16] LABS: ALBUMIN 3.6 G/DL (3.2-5.2); BILIRUBIN,TOTAL 0.5 MG/DL (0.3-1.2); CALCIUM LEVEL 8.7 MG/DL (8.3-10.6); CREATININE FOR GFR 1.29 MG/DL (0.70-1.30); GLOMERULAR FILTRATION RATE 57.3 (>42); POTASSIUM SERUM 4.9 MMOL/L (3.5-5.1); THYROID STIMULATING HORMONE 8.393 uIU/ML (0.55-4.78); TOTAL PROTEIN 6.3 G/DL (5.7-8.2)
[2022-08-18 17:47] LABS: HEMOGLOBIN A1c 6.7 % (4.0-6.0)
== END ==
LOC: M SFHCCLAY 11:59
PROVIDERS: ATTEND Family Medicine
DX: E11.22 Type 2 diabetes mellitus with diabetic chronic kidney disease (principal); E07.9 Disorder of thyroid, unspecified; R97.20 Elevated prostate specific antigen [PSA]

== ENCOUNTER → 2023-02-14 | Outpatient (REF) | payer MEDICARE | LOC: M SFHCCLAY 07:59 | PROVIDERS: ATTEND Family Medicine | DX: E07.9 Disorder of thyroid, unspecified (principal) ==

== ENCOUNTER → 2023-02-18 | Outpatient (REF) | payer MEDICARE | LOC: M SFHCCLAY 11:47 | PROVIDERS: ATTEND Family Medicine | DX: R19.7 Diarrhea, unspecified (principal) ==

== ENCOUNTER → 2023-05-03 | Outpatient (REF) | payer MEDICARE ==
[2023-05-08 23:07] LABS: CALPROTECTIN STOOL 18 ug/g (0-120); PANCREATIC ELASTASE STOOL 132 (>200)
== END ==
LOC: M SFHCCLAY 16:59
PROVIDERS: ATTEND Family Medicine
DX: R19.7 Diarrhea, unspecified (principal)

== ENCOUNTER → 2023-08-13 | Outpatient (REF) | payer MEDICARE ==
[2023-08-13 12:00] LABS: HEMATOCRIT 40.6 % (42.0-52.0); HEMOGLOBIN 13.2 g/dl (13.5-17.5); MEAN CORPUSCULAR HEMOGLOBIN 29.9 pg (27.0-33.0); MEAN CORPUSCULAR HGB CONC 32.5 g/dl (32.0-36.5); MEAN CORPUSCULAR VOLUME 91.9 fl (80.0-96.0); PLATELET COUNT, AUTOMATED 151 10^3/uL (150-450); RED BLOOD COUNT 4.42 10^6/uL (4.30-6.10); WHITE BLOOD COUNT 7.2 10^3/uL (4.0-10.0)
[2023-08-13 12:32] LABS: PROSTATIC SPECIFIC AG MONITOR 3.8 NG/ML (< 4.00)
[2023-08-13 12:36] LABS: FREE T4 1.21 NG/DL (0.89-1.76); THYROID STIMULATING HORMONE 3.384 uIU/ML (0.55-4.78)
[2023-08-13 12:39] LABS: ALBUMIN 3.6 G/DL (3.2-5.2); BILIRUBIN,TOTAL 0.5 MG/DL (0.3-1.2); CREATININE FOR GFR 1.6 MG/DL (0.70-1.30); GLOMERULAR FILTRATION RATE 44.6 (>42); MAGNESIUM LEVEL 1.4 MG/DL (1.8-2.4); POTASSIUM SERUM 4.7 MMOL/L (3.5-5.1); TOTAL PROTEIN 6.5 G/DL (5.7-8.2)
== END ==
LOC: M SFHCCLAY 08:51
PROVIDERS: ATTEND Family Medicine
DX: I10 Essential (primary) hypertension (principal); E11.22 Type 2 diabetes mellitus with diabetic chronic kidney disease; E07.9 Disorder of thyroid, unspecified; R97.20 Elevated prostate specific antigen [PSA]; K21.9 Gastro-esophageal reflux disease without esophagitis

== ENCOUNTER → 2023-11-05 | Outpatient (REF) | payer MEDICARE ==
[2023-11-05 17:17] LABS: HEMOGLOBIN A1c 7.3 % (4.0-6.0)
[2023-11-05 17:33] LABS: ALBUMIN 3.2 G/DL (3.2-5.2); BILIRUBIN,TOTAL 0.6 MG/DL (0.3-1.2); CALCIUM LEVEL 8.7 MG/DL (8.3-10.6); CREATININE FOR GFR 1.7 MG/DL (0.70-1.30); GLOMERULAR FILTRATION RATE 41.5 (>35)
== END ==
LOC: M SFHCCLAY 13:39
PROVIDERS: ATTEND Family Medicine
DX: E11.22 Type 2 diabetes mellitus with diabetic chronic kidney disease (principal)

== ENCOUNTER → 2024-02-20 | Outpatient (REF) | payer MEDICARE ==
[2024-02-20 18:46] LABS: HEMOGLOBIN A1c 6.9 % (4.0-6.0)
[2024-02-20 19:02] LABS: ALBUMIN 3.8 G/DL (3.2-5.2); BILIRUBIN,TOTAL 0.5 MG/DL (0.3-1.2); CALCIUM LEVEL 8.7 MG/DL (8.3-10.6); CREATININE FOR GFR 1.81 MG/DL (0.70-1.30); GLOMERULAR FILTRATION RATE 38.6 (>35); MAGNESIUM LEVEL 1.1 MG/DL (1.8-2.4); POTASSIUM SERUM 4.3 MMOL/L (3.5-5.1); TOTAL PROTEIN 6.8 G/DL (5.7-8.2)
[2024-02-20 19:03] LABS: THYROID STIMULATING HORMONE 4.131 uIU/ML (0.55-4.78)
== END ==
LOC: M SFHCCLAY 14:46
PROVIDERS: ATTEND Family Medicine
DX: E11.22 Type 2 diabetes mellitus with diabetic chronic kidney disease (principal); E07.9 Disorder of thyroid, unspecified; K21.9 Gastro-esophageal reflux disease without esophagitis

== ENCOUNTER → 2024-05-07 | Outpatient (CLI) | payer MEDICARE | LOC: M RAD 08:05 | PROVIDERS: ATTEND Internal Medicine Nephrology | DX: N18.32 Chronic kidney disease, stage 3b (principal); N28.89 Other specified disorders of kidney and ureter ==

== ENCOUNTER → 2024-05-22 | Outpatient (REF) | payer MEDICARE ==
[2024-05-22 18:08] LABS: ALBUMIN 3.5 G/DL (3.2-5.2); BILIRUBIN,TOTAL 0.4 MG/DL (0.3-1.2); CALCIUM LEVEL 8.9 MG/DL (8.3-10.6); CREATININE FOR GFR 1.38 MG/DL (0.70-1.30); GLOMERULAR FILTRATION RATE 52.8 (>35); MAGNESIUM LEVEL 1.1 MG/DL (1.8-2.4); POTASSIUM SERUM 4.2 MMOL/L (3.5-5.1); TOTAL PROTEIN 6.4 G/DL (5.7-8.2)
[2024-05-22 18:13] LABS: HEMOGLOBIN A1c 6.7 % (4.0-6.0)
== END ==
LOC: M SFHCCLAY 12:35
PROVIDERS: ATTEND Family Medicine
DX: E11.22 Type 2 diabetes mellitus with diabetic chronic kidney disease (principal); R79.0 Abnormal level of blood mineral

== ENCOUNTER → 2024-09-04 | Outpatient (REF) | payer MEDICARE ==
[2024-09-04 19:08] LABS: HEMATOCRIT 36.9 % (42.0-52.0); HEMOGLOBIN 11.9 g/dl (13.5-17.5); MEAN CORPUSCULAR HEMOGLOBIN 29.9 pg (27.0-33.0); MEAN CORPUSCULAR HGB CONC 32.2 g/dl (32.0-36.5); MEAN CORPUSCULAR VOLUME 92.7 fl (80.0-96.0); PLATELET COUNT, AUTOMATED 146 10^3/uL (150-450); RED BLOOD COUNT 3.98 10^6/uL (4.30-6.10); WHITE BLOOD COUNT 5.3 10^3/uL (4.0-10.0)
[2024-09-04 19:11] LABS: PROSTATIC SPECIFIC AG MONITOR 4.38 NG/ML (< 4.00)
[2024-09-04 19:12] LABS: ALBUMIN 3.7 G/DL (3.2-5.2); BILIRUBIN,TOTAL 0.7 MG/DL (0.3-1.2); CALCIUM LEVEL 9.2 MG/DL (8.3-10.6); CHOLESTEROL RISK RATIO 3.18 (<5); CREATININE FOR GFR 1.85 MG/DL (0.70-1.30); GLOMERULAR FILTRATION RATE 37.6 (>35); HDL CHOLESTEROL 42.7 MG/DL (>40); LDL CHOLESTEROL 64.1 MG/DL (<100); MAGNESIUM LEVEL 1.3 MG/DL (1.8-2.4); NON-HDL-C 93.3 MG/DL; POTASSIUM SERUM 4.4 MMOL/L (3.5-5.1); TOTAL PROTEIN 6.6 G/DL (5.7-8.2)
[2024-09-04 19:15] LABS: FREE T4 1.26 NG/DL (0.89-1.76); THYROID STIMULATING HORMONE 3.112 uIU/ML (0.55-4.78)
[2024-09-04 20:32] LABS: HEMOGLOBIN A1c 6.6 % (4.0-6.0)
== END ==
LOC: M SFHCCLAY 11:00
PROVIDERS: ATTEND Family Medicine
DX: D64.9 Anemia, unspecified (principal); E11.22 Type 2 diabetes mellitus with diabetic chronic kidney disease; E07.9 Disorder of thyroid, unspecified; E78.2 Mixed hyperlipidemia; K21.9 Gastro-esophageal reflux disease without esophagitis; R97.20 Elevated prostate specific antigen [PSA]

== ENCOUNTER → 2024-10-13 | Outpatient (CLI) | payer MEDICARE | LOC: M RAD 10:57 | PROVIDERS: ATTEND Internal Medicine Nephrology | DX: N18.32 Chronic kidney disease, stage 3b (principal); R93.2 Abnormal findings on diagnostic imaging of liver and biliary tract; N40.0 Benign prostatic hyperplasia without lower urinary tract symptoms ==

== ENCOUNTER → 2025-05-28 | Outpatient (REF) | payer OTHER | LOC: M SFHCCLAY 15:34 | PROVIDERS: ATTEND Family Medicine | DX: Z53.9 Procedure and treatment not carried out, unspecified reason (principal) ==